=== PATIENT | female | born 1985 | race Caucasian/White ===

== ENCOUNTER 2022-05-13 17:31 | Emergency (ER) | payer MEDICAID, SELFPAY ==
--- NOTE | ~2022-05-13 | XR_ITS ---
EXAMINATION: X-RAY PELVIS AND RIGHT HIP X-RAY RIGHT KNEE X-RAY RIGHT FOOT CLINICAL INFORMATION: Pain. COMPARISON: None. TECHNIQUE: 1 view of the pelvis and 2 views of the right hip. 4 views of the right knee. 3 views of the right foot. FINDINGS: Pelvis and right hip: No acute fracture or malalignment. SI joints are symmetric. Pubic symphysis is maintained. Small pelvic phleboliths. Right knee: No acute fracture or subluxation. Small joint effusion. Right foot: No acute fracture or malalignment. Diffuse nonspecific soft tissue swelling. XR/XR hip RT w PEL1V IMPRESSION: 1. No acute fracture or malalignment. 2. Small right knee joint effusion. 3. Diffuse nonspecific soft tissue swelling in the right foot.
--- NOTE | ~2022-05-13 | XR_ITS ---
EXAMINATION: X-RAY PELVIS AND RIGHT HIP X-RAY RIGHT KNEE X-RAY RIGHT FOOT CLINICAL INFORMATION: Pain. COMPARISON: None. TECHNIQUE: 1 view of the pelvis and 2 views of the right hip. 4 views of the right knee. 3 views of the right foot. FINDINGS: Pelvis and right hip: No acute fracture or malalignment. SI joints are symmetric. Pubic symphysis is maintained. Small pelvic phleboliths. Right knee: No acute fracture or subluxation. Small joint effusion. Right foot: No acute fracture or malalignment. Diffuse nonspecific soft tissue swelling. XR/XR foot RT min 3V IMPRESSION: 1. No acute fracture or malalignment. 2. Small right knee joint effusion. 3. Diffuse nonspecific soft tissue swelling in the right foot.
--- NOTE | ~2022-05-13 | XR_ITS ---
EXAMINATION: X-RAY PELVIS AND RIGHT HIP X-RAY RIGHT KNEE X-RAY RIGHT FOOT CLINICAL INFORMATION: Pain. COMPARISON: None. TECHNIQUE: 1 view of the pelvis and 2 views of the right hip. 4 views of the right knee. 3 views of the right foot. FINDINGS: Pelvis and right hip: No acute fracture or malalignment. SI joints are symmetric. Pubic symphysis is maintained. Small pelvic phleboliths. Right knee: No acute fracture or subluxation. Small joint effusion. Right foot: No acute fracture or malalignment. Diffuse nonspecific soft tissue swelling. XR/XR knee RT 4V IMPRESSION: 1. No acute fracture or malalignment. 2. Small right knee joint effusion. 3. Diffuse nonspecific soft tissue swelling in the right foot.
--- NOTE | ~2022-05-13 | US_ITS ---
EXAMINATION: US VENOUS ULTRASOUND WITH DOPPLER LOWER EXTREMITY, RIGHT CLINICAL INFORMATION: Pain COMPARISON: None TECHNIQUE: Ultrasound of the deep veins is performed from the hip to the calf with compression sonography and color and pulse Doppler assessment. Spectral analysis with color-flow imaging is performed. FINDINGS: There is normal venous compression and respiratory variation and augmented flow. The visualized common femoral vein, superficial femoral vein, profunda femoral vein, popliteal vein, and the trifurcation region shows no evidence of deep venous thrombosis. There is no significant popliteal fossa cyst. If the patient's symptoms persist, followup ultrasound in 5 days 7 days might be of value to exclude proximal propagation from a non-visualized calf vein. US/US venous duplex LE RT IMPRESSION: No DVT demonstrated in the right lower extremity.
[2022-05-13 17:39] VITALS: BP 149/104; PULSE 104; RESP 18; TEMP 37.2; O2SAT 94; BMI 27.3
[2022-05-13] MEDS: Ketorolac Tromethamine 30 MG/ML VIAL IM (20:22)
[2022-05-13] MEDS: Diphth,Pertus(ACell),Tet Adult 0.5 ML SYRINGE IM (20:22)
[2022-05-13] MEDS: Cyclobenzaprine HCl 10 MG TABLET PO (20:22)
--- NOTE | 2022-05-13 20:51 | ED.LOWEXIN ---
HPI - Extremity Injury (Lower) General Chief Complaint: Extremity Injury, Lower Stated Complaint: foot pain Time Seen by Provider: 05/13/22 19:15 Source: patient and family (Spouse) Mode of arrival: ambulatory Limitations: language barrier (Korean-speaking) History of Present Illness HPI Narrative: 36yoF presenting to the ER with complaints of right hip/knee pain that has been going on for 2 weeks worse today. Reports she stands for 8 hours at work and reports she is concerned it is related to this. She also reports she stepped on a piece of glass on 05/09/2022 although remove the glass. Reports she is still having some residual pain from this. Reports she is a prediabetic. Denies any fevers, chest pain, shortness of breath, dyspnea on exertion, or palpitations, lower extremity more calf tenderness or any other symptoms complaints or concerns at this time. MD complaint: hip injury, knee injury and foot injury Onset (ago): week(s) (2) Severity: moderate Relieving factors: nothing Exacerbating factors: weight bearing, movement and palpation Other symptoms: none Related Data Previous Rx's Medication Instructions Recorded ciprofloxacin HCl 500 mg tablet 500 mg PO BID Foot puncture wound 05/13/22 (Cipro) 14 days #28 tabs cyclobenzaprine 10 mg tablet 10 mg PO Q8H #14 tabs 05/13/22 naproxen 500 mg tablet 500 mg PO BID PRN pain #14 tabs 05/13/22 Allergies Allergy/AdvReac Type Severity Reaction Status Date / Time No Known Allergies Allergy Verified 05/13/22 17:34 [No Known Allergies*] Review of Systems Review of Systems: Constitutional : No Weight loss, No Fever, No Chills, No Night Sweats, No Fatigue, No Malaise ENT/Mouth : No Hearing loss, No Ear Pain, No Nasal Congestion, No Sinus Pain, No Hoarseness, No sore throat, No Rhinorrhea, No Swallowing Difficulty Eyes: No Eye Pain, No Swelling, No Redness, No Foreign Body, No Discharge, No Vision Changes Cardiovascular : No Chest Pain, No SOB, No Dyspnea on Exertion, No Orthopnea, No Edema, No Palpitations Respiratory : No Cough, No Sputum, No Wheezing, No Smoke Exposure, No Dyspnea Gastrointestinal : No Nausea, No Vomiting, No Diarrhea, No Constipation, No abdominal Pain, No Hematochezia, No Melena Genitourinary : no irregular bleeding, No Dysuria, No Urinary Frequency, No Hematuria, No Urinary Incontinence, No Urgency, No Flank Pain, No Urinary Flow Changes, No Hesitancy Musculoskeletal : + right hip/knee/foot joint pain, No Myalgias, No Joint Swelling Skin : + puncture wound to right foot, No Skin Lesions, No rash Neuro : No Weakness, No Numbness, No Paresthesias, No Loss of Consciousness, No Dizziness, No Headache Psych : No Anxiety/Panic, No Depression, No SI/HI/AH/VH, No Social Issues, Heme/Lymph: No Bruising, No Bleeding,No Lymphadenopathy Endocrine : No Polyuria, No Polydipsia, No Temperature Intolerance Yes all other systems are reviewed and are negative [facility] Past Medical History Attestation statement: The following information was validated with the patient. Source: old records reviewed, obtained from family and nursing notes reviewed Social History Social History Advance Directives: No Advance Directives Information Provided: No Physical Exam Vital Signs: Vital Signs: Last Vital Signs Temp 99 F 05/13/22 17:39 Pulse 104 H 05/13/22 17:39 Resp 18 05/13/22 17:39 BP 149/104 H 05/13/22 17:39 Pulse Ox 94 05/13/22 17:39 O2 Del Method 05/13/22 17:39 BMI result Body Mass Index 27.3 Vital signs reviewed. Blood pressure 149/104 Pulse 104. Respiration normal. Oxygen normal. Temperature normal. Appearance: Alert. Oriented X3. No acute distress. Head: Normal external exam. Normocephalic. Atraumatic. Eyes: PERRLA. EOMI. Conjunctiva and sclera normal. Eyelids normal. ENT: EAC normal. TM's Normal. Pharynx normal. Uvula midline. Moist mucous membranes. No lesions/ulcerations or masses noted on the tongue. Normal voice. No trismus noted. No drooling noted. No muffled voice noted. Neck: Normal inspection. Neck supple. FROM. No adenopathy. Thyroid Normal. No meningeal signs. CVS: Normal heart rate and rhythm. Heart sound normal. Pulses normal throughout. No murmurs/rales/gallops. Respiratory: No respiratory distress. Painless inspiration. Breath sounds normal. No wheezes/rales/rhonchi noted. Chest nontender. No accessory muscle usage noted or decreased air movement noted. Abdomen: Soft and nontender. Back: Full range of motion noted. Nontender. Skin: Skin warm and dry. Normal skin color. Normal skin turgor. No rashes/lesions/lacerations noted. Extremities: Patient with tenderness palpation to the right hip at the lateral aspect and right knee diffusely and tenderness palpation to the sole aspect of the foot with a superficial puncture wound. No foreign bodies noted to the right foot. She has full range of motion of the right hip/knee/ankle and foot joint. Not consistent with septic joint. No obvious ligamentous or tendon injury noted. There is no lower extremity edema or calf tenderness noted. Otherwise all other extremities exhibit normal range of motion nontender. Neuro: Oriented X 3. No motor deficit. No sensory deficit. Reflexes normal. Normal steady gait. No focal neuro deficits noted. CN's II-XII intact bilaterally? Vascular: + radial pulses. Normal cap refill. No cyanosis noted to upper extremity nails Course Course Course Narrative: 36yoF presenting to the ER with complaints of right hip/knee pain that has been going on for 2 weeks worse today. Reports she stands for 8 hours at work and reports she is concerned it is related to this. She also reports she stepped on a piece of glass on 05/09/2022 although remove the glass. Reports she is still having some residual pain from this. Reports she is a prediabetic. Denies any fevers, chest pain, shortness of breath, dyspnea on exertion, or palpitations, lower extremity more calf tenderness or any other symptoms complaints or concerns at this time. X-ray of right knee reveals small joint effusion. X-ray of right foot revealed some soft tissue swelling. Otherwise no other acute processes noted. DVT study negative. Will place an Deshawn wrap and treat symptomatic and instructed follow-up with PCP and orthopedic his symptoms persist and to return if any new or worsening symptoms. Patient understands agrees with this plan. Medications Administered Discontinued Medications Generic Name Dose Route Start Last Admin Trade Name Freq PRN Reason Stop Dose Admin Cyclobenzaprine HCl 10 mg 05/13/22 19:32 05/13/22 20:22 Cyclobenzaprine Hcl 10 Mg Tablet PO 05/13/22 19:33 10 mg ONCE ONE Administration Diphtheria/Tetanus/Acell Pertussis 0.5 ml 05/13/22 19:32 05/13/22 20:22 Diphth,Pertus(Acell),Tet Adult 0.5 Ml Syringe IM 05/13/22 19:33 0.5 ml .ONCE ONE Administration Ketorolac Tromethamine 30 mg 05/13/22 19:32 05/13/22 20:22 Ketorolac Tromethamine 30 Mg/Ml Vial IM 05/13/22 19:33 30 mg ONCE ONE Administration Medical Decision Making Independent Interpretation I performed an independent interpretation of an: Plain X-Ray (I reviewed the x-ray results myself and printed out and given to the patient) and Ultrasound (I reviewed the ultrasound myself and negative for any DVT and discussed this with the patient family) Radiology Impression Discussion of test interpretation with radiology: I have reviewed the radiologist's reading. Radiologist Impression: FINDINGS: There is normal venous compression and respiratory variation and augmented flow. The visualized common femoral vein, superficial femoral vein, profunda femoral vein, popliteal vein, and the trifurcation region shows no evidence of deep venous thrombosis. ? There is no significant popliteal fossa cyst. If the patient's symptoms persist, followup ultrasound in 5 days 7 days might be of value to exclude proximal propagation from a non-visualized calf vein. US/US venous duplex LE RT IMPRESSION: No DVT demonstrated in the right lower extremity. EXAMINATION: X-RAY PELVIS AND RIGHT HIP X-RAY RIGHT KNEE X-RAY RIGHT FOOT CLINICAL INFORMATION: Pain.? COMPARISON: None.? TECHNIQUE: 1 view of the pelvis and 2 views of the right hip. 4 views of the right knee. 3 views of the right foot.? FINDINGS: Pelvis and right hip: No acute fracture or malalignment. SI joints are symmetric. Pubic symphysis is maintained. Small pelvic phleboliths. Right knee: No acute fracture or subluxation. Small joint effusion. Right foot: No acute fracture or malalignment. Diffuse nonspecific soft tissue swelling.? XR/XR knee RT 4V IMPRESSION: 1.? No acute fracture or malalignment. 2.? Small right knee joint effusion. 3.? Diffuse nonspecific soft tissue swelling in the right foot. ? Independent Historian Clinical information obtained from an independent historian. History obtained from or confirmed by: Spouse Discharge Plan Discharge Clinical Impression: Puncture wound of foot, Effusion of knee joint right Patient Disposition: Home, Self-Care Instructions: Swollen Knee Joint (ED), Joint Aspiration (DC), Puncture Wound in the Foot (ED) Prescriptions: New ciprofloxacin HCl [Cipro] 500 mg tablet 500 mg PO BID 14 Days Qty: 28 0RF naproxen 500 mg tablet 500 mg PO BID PRN (Reason: pain) Qty: 14 0RF cyclobenzaprine 10 mg tablet 10 mg PO Q8H Qty: 14 0RF Referrals: [facility] [place] [facility] [Provider Group] (Call to make a follow-up appointment as needed for your right knee joint effusion) [place],[facility] [Primary Care Provider] - 2 days Stand Alone Forms: Work/School Release Print Language: Korean
== END 2022-05-13 21:14 | disposition home or self-care (01) ==
PROVIDERS: Emergency Provider Emergency Medicine
DX: S80.211A Abrasion, right knee, initial encounter (principal); M25.461 Effusion, right knee; M25.551 Pain in right hip; R60.0 Localized edema; X58.XXXA Exposure to other specified factors, initial encounter; Y93.9 Activity, unspecified; Y92.9 Unspecified place or not applicable; Y99.9 Unspecified external cause status; Z23 Encounter for immunization; Z79.899 Other long term (current) drug therapy
CPT/HCPCS: 73502; 73564; 73630; 90471; 90715; 93971; 96372; 99283; 99284; J1885

== ENCOUNTER 2022-05-16 11:46 | Emergency (ER) | payer MEDICAID, SELFPAY ==
--- NOTE | ~2022-05-16 | XR_ITS ---
EXAMINATION: XR CHEST CLINICAL INFORMATION: Shortness of breath COMPARISON: None TECHNIQUE: 2 views of the chest were obtained. FINDINGS: No significant abnormality central perirectal thickening with increased central perihilar markings. Is noted involving the heart, lungs, mediastinum, bony thorax or soft tissues. XR/XR chest 2V IMPRESSION: Findings consistent with nonspecific bronchitis. No focal infiltrate.
[2022-05-16 11:51] VITALS: BP 155/94; PULSE 128; RESP 18; TEMP 37.1; O2SAT 96; BMI 27.3
[2022-05-16 12:57] LABS: Influenza A PCR NEGATIVE (Negative); Influenza B PCR NEGATIVE (Negative); Resp Syncy Virus RNA Qual PCR NEGATIVE (Negative); SARS COV2 PCR INHOUSE NEGATIVE (Negative)
[2022-05-16] MEDS: predniSONE 20 MG TABLET 60 MG PO (15:07)
[2022-05-16 15:09] VITALS: O2SAT 94
[2022-05-16 15:18] VITALS: PULSE 105; RESP 19; O2SAT 99
--- NOTE | 2022-05-16 16:08 | ED.URI ---
HPI - URI/Sore Throat General Chief Complaint: Upper Respiratory Symptoms Stated Complaint: Diff Breathing Asthma Time Seen by Provider: 05/16/22 14:44 History of Present Illness HPI Narrative: Patient complains of cough productive of sputum, chest tightness, wheezing over the last several days, the chest tightness is similar to prior episodes of wheezing and asthma, there is no other chest pain except when she coughs There is no exertional chest pain no nausea or vomiting no diaphoresis no fainting of feeling faint no palpitations no syncope no dizziness She does have some runny nose and congestion no sore throat no difficulty swallowing no abdominal pain no nausea vomiting or diarrhea no dysuria no calf pain or swelling no leg swelling Related Data Previous Rx's Medication Instructions Recorded ciprofloxacin HCl 500 mg tablet 500 mg PO BID Foot puncture wound 05/13/22 (Cipro) 14 days #28 tabs cyclobenzaprine 10 mg tablet 10 mg PO Q8H #14 tabs 05/13/22 naproxen 500 mg tablet 500 mg PO BID PRN pain #14 tabs 05/13/22 albuterol sulfate 2.5 mg/3 mL 2.5 mg (3 mL) inhalation Q4H PRN 05/16/22 (0.083 %) solution for nebulization shortness of breath or wheezing #75 mL albuterol sulfate 90 mcg/actuation 2 puff inhalation Q4-6H PRN 05/16/22 aerosol inhaler shortness of breath or wheezing #8.5 grams benzonatate 100 mg capsule 100 mg PO TID PRN cough #14 caps 05/16/22 doxycycline hyclate 100 mg tablet 100 mg PO BID 7 days #14 tabs 05/16/22 prednisone 20 mg tablet 60 mg PO DAILY 5 days #15 tabs 05/16/22 Allergies Allergy/AdvReac Type Severity Reaction Status Date / Time No Known Allergies Allergy Verified 05/16/22 11:58 [No Known Allergies*] [facility] Past Medical History Source: nursing notes reviewed Social History Social History Advance Directives: No Advance Directives Information Provided: Yes Physical Exam Vital Signs: Vital Signs: Last Vital Signs Temp 98.7 F 05/16/22 11:51 Pulse 105 H 05/16/22 15:18 Resp 19 05/16/22 15:18 BP 155/94 H 05/16/22 11:51 Pulse Ox 94 05/16/22 15:09 O2 Del Method 05/16/22 15:09 BMI result Body Mass Index 27.3 General appearance is no acute distress Eyes anicteric no pallor Pharynx is clear without redness swelling or exudate The mucous membranes are moist the voice is normal Neck is supple Chest is with scattered wheezes now, but good air entry no respiratory distress Abdomen soft nontender Extremities range of motion x4 without edema no calf swelling or tenderness Course Course Course Narrative: Patient with history of asthma who comes in with wheezing chest tightness and productive cough X-ray was negative for obvious consolidation COVID and flu tests were negative Patient was given a treatment with good improvement in her breath sounds as well as feeling improved breathing after The pain in her chest was totally reproducible and the description was only chest pain with coughing and movement as well as some chest tightness which is very typical when she has had asthma before there were no exertional symptoms no diaphoresis no vomiting She is given a prescription for albuterol as she has no medicine for her machine at home, up pump as well, prednisone and Zithromax antibiotic Medications Administered Discontinued Medications Generic Name Dose Route Start Last Admin Trade Name Freq PRN Reason Stop Dose Admin Albuterol Sulfate 5 mg/ 0 mg 05/16/22 15:02 05/16/22 15:15 Ipratropium [place] 0.5 mg INHALE 05/16/22 15:03 1 each ONCE ONE Administration Prednisone 60 mg 05/16/22 15:03 05/16/22 15:07 Prednisone 20 Mg Tablet PO 05/16/22 15:04 60 mg ONCE ONE Administration Medical Decision Making Lab Data Labs: Lab Results 05/16/22 Range/Units 12:08 Influenza Type A (PCR) NEGATIVE (Negative) Influenza Type B (PCR) NEGATIVE (Negative) RSV RNA Qual (PCR) NEGATIVE (Negative) SARS-CoV-2 RNA (RT-PCR) NEGATIVE (Negative) Discharge Plan Discharge Clinical Impression: Bronchitis, Asthma Patient Disposition: Home, Self-Care Additional Instructions: Chest x-ray was normal, COVID and flu testing were negative We prescribed prednisone and albuterol for the wheezing, and Zithromax antibiotic for bronchitis Follow with your doctor Return any time for difficulty breathing any worse condition or any concerns Prescriptions: New doxycycline hyclate 100 mg tablet 100 mg PO BID 7 Days Qty: 14 0RF prednisone 20 mg tablet 60 mg PO DAILY 5 Days Qty: 15 0RF albuterol sulfate 90 mcg/actuation HFA aerosol inhaler 2 puff inhalation Q4-6H PRN (Reason: shortness of breath or wheezing) Qty: 8.5 0RF albuterol sulfate 2.5 mg /3 mL (0.083 %) solution for nebulization 2.5 mg inhalation Q4H PRN (Reason: shortness of breath or wheezing) Qty: 75 0RF benzonatate 100 mg capsule 100 mg PO TID PRN (Reason: cough) Qty: 14 0RF No Action ciprofloxacin HCl [Cipro] 500 mg tablet 500 mg PO BID 14 Days Qty: 28 0RF naproxen 500 mg tablet 500 mg PO BID PRN (Reason: pain) Qty: 14 0RF cyclobenzaprine 10 mg tablet 10 mg PO Q8H Qty: 14 0RF Stand Alone Forms: Work/School Release Interventions: ED Discharge Assessment Last Done: 05/16/22 16:28 Discharge Date/Time: 05/16/22 16:29
== END 2022-05-16 16:29 | disposition home or self-care (01) ==
PROVIDERS: Emergency Provider Emergency Medicine
DX: J45.909 Unspecified asthma, uncomplicated (principal); R06.02 Shortness of breath; R07.89 Other chest pain; R05.9 Cough, unspecified; Z20.822 Contact with and (suspected) exposure to COVID-19; Z20.828 Contact with and (suspected) exposure to other viral communicable diseases; Z79.899 Other long term (current) drug therapy
CPT/HCPCS: 0241U; 71046; 94640; 99284

== ENCOUNTER 2022-07-17 10:57 | Emergency (ER) | payer MEDICAID, SELFPAY ==
[2022-07-17 11:07] VITALS: BP 128/88; PULSE 95; RESP 18; TEMP 37.1; O2SAT 98; BMI 27.3
--- NOTE | 2022-07-17 11:09 | ED.GENADULT ---
HPI - General Adult General Chief complaint: Upper Respiratory Symptoms Stated complaint: sore throat, R ear pain, cold symp Time Seen by Provider: 07/17/22 12:09 Related Data Previous Rx's Medication Instructions Recorded ciprofloxacin HCl 500 mg tablet 500 mg PO BID Foot puncture wound 05/13/22 (Cipro) 14 days #28 tabs cyclobenzaprine 10 mg tablet 10 mg PO Q8H #14 tabs 05/13/22 naproxen 500 mg tablet 500 mg PO BID PRN pain #14 tabs 05/13/22 albuterol sulfate 2.5 mg/3 mL 2.5 mg (3 mL) inhalation Q4H PRN 05/16/22 (0.083 %) solution for nebulization shortness of breath or wheezing #75 mL albuterol sulfate 90 mcg/actuation 2 puff inhalation Q4-6H PRN 05/16/22 aerosol inhaler shortness of breath or wheezing #8.5 grams benzonatate 100 mg capsule 100 mg PO TID PRN cough #14 caps 05/16/22 doxycycline hyclate 100 mg tablet 100 mg PO BID 7 days #14 tabs 05/16/22 prednisone 20 mg tablet 60 mg PO DAILY 5 days #15 tabs 05/16/22 ibuprofen 600 mg tablet 600 mg PO Q6H PRN fever or pain 07/17/22 #20 tabs Allergies Allergy/AdvReac Type Severity Reaction Status Date / Time No Known Allergies Allergy Verified 07/17/22 11:07 [No Known Allergies*] PMFSH Social History Social History Advance Directives: No Physical Exam ED Vital Signs: Vital Signs - 24 hr 07/17/22 11:07 Temperature 98.7 F Pulse Rate 95 Respiratory Rate 18 Blood Pressure 128/88 Pulse Oximetry 98 Oxygen Delivery Method Room Air BMI result Body Mass Index 27.3 Course Course Course Narrative: 36 year old female presnts for evaluation of sore throat and cough. She is well appearing. Plan for strep throat swab and viral swab Medical Decision Making Lab Data Labs: Lab Results 07/17/22 07/17/22 Range/Units 11:16 11:16 Influenza Type A (PCR) NEGATIVE (Negative) Influenza Type B (PCR) NEGATIVE (Negative) RSV RNA Qual (PCR) NEGATIVE (Negative) SARS-CoV-2 RNA (RT-PCR) NEGATIVE (Negative) S. pyogenes GrpA MOHAN Negative (Negative) Discharge Plan Discharge Clinical Impression: Acute viral syndrome Patient Disposition: Home, Self-Care Additional Instructions: Testing for COVID fluid and strep were all negative Your exam was normal and there is no sign of any dangerous or worrisome condition now You likely have viral illness which should pass in a week to 10 days We gave a dose of steroid which usually relieves throat inflammation and makes it more comfortable to swallow Drink plenty of fluids Return any time any worse condition or any concerns Prescriptions: New ibuprofen 600 mg tablet 600 mg PO Q6H PRN (Reason: fever or pain) Qty: 20 0RF No Action doxycycline hyclate 100 mg tablet 100 mg PO BID 7 Days Qty: 14 0RF prednisone 20 mg tablet 60 mg PO DAILY 5 Days Qty: 15 0RF albuterol sulfate 90 mcg/actuation HFA aerosol inhaler 2 puff inhalation Q4-6H PRN (Reason: shortness of breath or wheezing) Qty: 8.5 0RF albuterol sulfate 2.5 mg /3 mL (0.083 %) solution for nebulization 2.5 mg inhalation Q4H PRN (Reason: shortness of breath or wheezing) Qty: 75 0RF benzonatate 100 mg capsule 100 mg PO TID PRN (Reason: cough) Qty: 14 0RF ciprofloxacin HCl [Cipro] 500 mg tablet 500 mg PO BID 14 Days Qty: 28 0RF naproxen 500 mg tablet 500 mg PO BID PRN (Reason: pain) Qty: 14 0RF cyclobenzaprine 10 mg tablet 10 mg PO Q8H Qty: 14 0RF Stand Alone Forms: Work/School Release
[2022-07-17 11:31] LABS: IDNOW Serial# 08D9AD1C; Strep A Nucleic Acid Negative (Negative)
[2022-07-17 12:06] LABS: Influenza A PCR NEGATIVE (Negative); Influenza B PCR NEGATIVE (Negative); Resp Syncy Virus RNA Qual PCR NEGATIVE (Negative); SARS COV2 PCR INHOUSE NEGATIVE (Negative)
--- NOTE | 2022-07-17 12:46 | ED.URI ---
HPI - URI/Sore Throat General Chief Complaint: Upper Respiratory Symptoms Stated Complaint: sore throat, R ear pain, cold symp Time Seen by Provider: 07/17/22 12:09 History of Present Illness HPI Narrative: Patient complains of sore throat runny nose and mild cough as well as body aches for the last 2 days The sore throat hurts when she eats but she is able to eat and drink with no difficulty She has no headache she has no stiff neck she has no chest pain no sputum, cough is mild infrequent and dry, she has no shortness of breath, no abdominal pain nausea vomiting or diarrhea no dysuria no skin rash Related Data Previous Rx's Medication Instructions Recorded ciprofloxacin HCl 500 mg tablet 500 mg PO BID Foot puncture wound 05/13/22 (Cipro) 14 days #28 tabs cyclobenzaprine 10 mg tablet 10 mg PO Q8H #14 tabs 05/13/22 naproxen 500 mg tablet 500 mg PO BID PRN pain #14 tabs 05/13/22 albuterol sulfate 2.5 mg/3 mL 2.5 mg (3 mL) inhalation Q4H PRN 05/16/22 (0.083 %) solution for nebulization shortness of breath or wheezing #75 mL albuterol sulfate 90 mcg/actuation 2 puff inhalation Q4-6H PRN 05/16/22 aerosol inhaler shortness of breath or wheezing #8.5 grams benzonatate 100 mg capsule 100 mg PO TID PRN cough #14 caps 05/16/22 doxycycline hyclate 100 mg tablet 100 mg PO BID 7 days #14 tabs 05/16/22 prednisone 20 mg tablet 60 mg PO DAILY 5 days #15 tabs 05/16/22 ibuprofen 600 mg tablet 600 mg PO Q6H PRN fever or pain 07/17/22 #20 tabs Allergies Allergy/AdvReac Type Severity Reaction Status Date / Time No Known Allergies Allergy Verified 07/17/22 11:07 [No Known Allergies*] [facility] Past Medical History Source: nursing notes reviewed Social History Social History Advance Directives: No Physical Exam Vital Signs: Vital Signs: Last Vital Signs Temp 98.7 F 07/17/22 11:07 Pulse 95 07/17/22 11:07 Resp 18 07/17/22 11:07 BP 128/88 07/17/22 11:07 Pulse Ox 98 07/17/22 11:07 O2 Del Method Room Air 07/17/22 11:07 BMI result Body Mass Index 27.3 General appearance comfortable no distress Eyes no redness or discharge The nose is congested, sinuses are nontender The pharynx is clear without redness swelling or exudate, membranes are moist Neck is supple Chest clear to auscultation bilateral Heart no murmur Abdomen soft nontender Extremities for range of motion x4 Skin no rash Course Course Course Narrative: Well-appearing patient tolerating p.o. no distress had negative COVID flu and strep tests and is treated with a dose of steroid and is discharged Medical Decision Making Lab Data Labs: Lab Results 07/17/22 07/17/22 Range/Units 11:16 11:16 Influenza Type A (PCR) NEGATIVE (Negative) Influenza Type B (PCR) NEGATIVE (Negative) RSV RNA Qual (PCR) NEGATIVE (Negative) SARS-CoV-2 RNA (RT-PCR) NEGATIVE (Negative) S. pyogenes GrpA MOHAN Negative (Negative) Discharge Plan Discharge Clinical Impression: Acute viral syndrome Patient Disposition: Home, Self-Care Additional Instructions: Testing for COVID fluid and strep were all negative Your exam was normal and there is no sign of any dangerous or worrisome condition now You likely have viral illness which should pass in a week to 10 days We gave a dose of steroid which usually relieves throat inflammation and makes it more comfortable to swallow Drink plenty of fluids Return any time any worse condition or any concerns Prescriptions: New ibuprofen 600 mg tablet 600 mg PO Q6H PRN (Reason: fever or pain) Qty: 20 0RF No Action doxycycline hyclate 100 mg tablet 100 mg PO BID 7 Days Qty: 14 0RF prednisone 20 mg tablet 60 mg PO DAILY 5 Days Qty: 15 0RF albuterol sulfate 90 mcg/actuation HFA aerosol inhaler 2 puff inhalation Q4-6H PRN (Reason: shortness of breath or wheezing) Qty: 8.5 0RF albuterol sulfate 2.5 mg /3 mL (0.083 %) solution for nebulization 2.5 mg inhalation Q4H PRN (Reason: shortness of breath or wheezing) Qty: 75 0RF benzonatate 100 mg capsule 100 mg PO TID PRN (Reason: cough) Qty: 14 0RF ciprofloxacin HCl [Cipro] 500 mg tablet 500 mg PO BID 14 Days Qty: 28 0RF naproxen 500 mg tablet 500 mg PO BID PRN (Reason: pain) Qty: 14 0RF cyclobenzaprine 10 mg tablet 10 mg PO Q8H Qty: 14 0RF Stand Alone Forms: Work/School Release
[2022-07-17] MEDS: Ibuprofen 600 MG TABLET PO (12:55)
[2022-07-17] MEDS: dexAMETHasone 2 MG TABLET 10 MG PO (12:55)
== END 2022-07-17 13:04 | disposition home or self-care (01) ==
PROVIDERS: Physician Assistant; Emergency Provider Emergency Medicine
DX: B34.9 Viral infection, unspecified (principal); J02.9 Acute pharyngitis, unspecified; Z20.822 Contact with and (suspected) exposure to COVID-19; Z20.828 Contact with and (suspected) exposure to other viral communicable diseases; Z79.899 Other long term (current) drug therapy
CPT/HCPCS: 0241U; 87651; 99283; J8540

== ENCOUNTER 2023-12-24 17:12 | Emergency (ER) | payer MEDICAID, SELFPAY ==
--- NOTE | ~2023-12-24 | XR_ITS ---
EXAMINATION: XR CHEST CLINICAL INFORMATION: Chest pain COMPARISON: None available. TECHNIQUE: 2 views of the chest were obtained. FINDINGS: No significant abnormality is noted involving the heart, lungs, mediastinum, bony thorax or soft tissues. XR/XR chest 2V IMPRESSION: Unremarkable examination. Electronically signed by: Arturo Alvarez MD 12/24/2023 06:11 PM EDT RP
[2023-12-24 17:14] VITALS: BP 145/99; PULSE 96; RESP 16; TEMP 36.1; O2SAT 99; BMI 29.7
--- NOTE | 2023-12-24 17:14 | ED_ITS ---
HPI - Chest Pain General Chief Complaint: Chest Pain Stated Complaint: headaches/eye red/chest hurts Related Data Previous Rx's ?Medication ?Instructions ?Recorded ciprofloxacin HCl 500 mg tablet 500 mg PO BID Foot puncture wound 05/13/22 (Cipro) 14 days #28 tabs cyclobenzaprine 10 mg tablet 10 mg PO Q8H #14 tabs 05/13/22 naproxen 500 mg tablet 500 mg PO BID PRN pain #14 tabs 05/13/22 albuterol sulfate 2.5 mg/3 mL 2.5 mg (3 mL) inhalation Q4H PRN 05/16/22 (0.083 %) solution for nebulization shortness of breath or wheezing #75 mL albuterol sulfate 90 mcg/actuation 2 puff inhalation Q4-6H PRN 05/16/22 aerosol inhaler shortness of breath or wheezing #8.5 grams benzonatate 100 mg capsule 100 mg PO TID PRN cough #14 caps 05/16/22 doxycycline hyclate 100 mg tablet 100 mg PO BID 7 days #14 tabs 05/16/22 prednisone 20 mg tablet 60 mg (3 x 20 mg) PO DAILY 5 days 05/16/22 #15 tabs ibuprofen 600 mg tablet 600 mg PO Q6H PRN fever or pain 07/17/22 #20 tabs Allergies Allergy/AdvReac Type Severity Reaction Status Date / Time No Known Allergies Allergy Verified 12/24/23 17:18 [No Known Allergies*] [facility] Social History Social History Advance Directives: No Advance Directives Information Provided: No Physical Exam 2 Vital Signs: Vital Signs: Last Vital Signs Temp 98.5 F 12/24/23 21:30 Pulse 76 12/24/23 21:30 Resp 13 12/24/23 21:30 BP 141/87 H 12/24/23 21:30 Pulse Ox 97 12/24/23 21:30 O2 Del Method Room Air 12/24/23 21:30 BMI result Body Mass Index 29.7 Course Course Course Narrative: This is an RME: Additional HPI, ROS, PE not included below will be deferred to primary provider. RME assessment and note performed by: Avril Humphreys PA-C This is a [id number]-female, with a hx of diabetes, who presents to the ER with complaints of chest pain x several weeks, worsening today. Describes the chest pain as sharp. Reporting headaches for months worsening last night. Also reporting cough, chills. She is not on control, no recent travel, surgeries, hospitalizations. Plan: Labs, EKG, chest x-ray Reevaluation(s) Reevaluation #1: Patient left without completing treatment. Medical Decision Making Lab Data 12/24/23 17:41 12/24/23 17:41 Labs: Lab Results 12/24/23 Range/Units 17:41 WBC 14.0 H (4.8-10.8) X10*3/uL RBC 4.56 (4.20-5.50) X10*6/uL Hgb 13.8 (12.0-16.0) g/dl Hct 38.4 (37.0-47.0) % MCV 84.2 (80.0-98.0) fL MCH 30.3 (27.0-33.0) pg MCHC 35.9 H (31.0-35.0) g/dl RDW 13.2 (11.0-16.0) % Plt Count 527 H (160-400) X10*3/uL MPV 8.8 L (9.4-12.3) fL Immature Gran % (Auto) 0.4 (0.0-0.4) % Neut % (Auto) 61.4 (45-73) % Lymph % (Auto) 32.0 (20-40) % [place]ferro % (Auto) 4.0 (2-11) % Eos % (Auto) 1.4 (0-4) % Baso % (Auto) 0.8 (0-2) % Lymph # (Auto) 4.5 (1.2-4.9) X10*3/uL [place] # (Auto) 0.6 (0.1-1.2) X10*3/uL Eos # (Auto) 0.2 (0.0-0.4) X10*3/uL Baso # (Auto) 0.1 (0.0-0.2) X10*3/uL Abs Immat Gran (auto) 0.05 H (0.00-0.03) X10*3/uL Absolute Neuts (auto) 8.6 H (2.0-8.3) x10*3/uL Absolute Nucleated RBC 0.000 (0.0-0.012) X10*3/uL Nucleated RBC % (auto) 0.0 (0.0-0.2) /100WBC PT 10.7 L (10.9-12.4) SEC INR 0.9 (0.9-1.1) Sodium 139 (135-145) mmol/L Potassium 3.6 (3.3-5.1) mmol/L Chloride 108 (96-108) mmol/L Carbon Dioxide 19 L (22-29) mmol/L Anion Gap 16 (12-20) BUN 9 (9-16) mg/dL Creatinine 0.73 (0.5-1.4) mg/dL Estim Creat Clear Calc 88.7 Estimated GFR > 60 Random Glucose 151 H (60-115) mg/dL Calcium 8.9 (8.4-10.2) mg/dL Total Bilirubin 0.1 (0.0-1.0) mg/dL Direct Bilirubin < 0.2 (0.0-0.5) mg/dL AST 10 (5-31) U/L ALT 9 (0-31) U/L Alkaline Phosphatase 56 (39-117) U/L Troponin I High Sens < 2.7 (<3.5-17.0) ng/L Total Protein 7.3 (6.5-8.0) g/dL Albumin 4.1 (3.5-5.0) g/dL Beta HCG, Quant < 2 mIU/mL Influenza Type A (PCR) NEGATIVE (Negative) Influenza Type B (PCR) NEGATIVE (Negative) RSV RNA Qual (PCR) NEGATIVE (Negative) SARS-CoV-2 RNA (RT-PCR) NEGATIVE (Negative) Discharge Plan Discharge Clinical Impression: Chest pain Patient Disposition: Left W/O Completing Treatment Prescriptions: No Action doxycycline hyclate 100 mg tablet 100 mg PO BID 7 Days Qty: 14 0RF prednisone 20 mg tablet 60 mg PO DAILY 5 Days Qty: 15 0RF albuterol sulfate 90 mcg/actuation HFA aerosol inhaler 2 puff inhalation Q4-6H PRN (Reason: shortness of breath or wheezing) Qty: 8.5 0RF albuterol sulfate 2.5 mg /3 mL (0.083 %) solution for nebulization 2.5 mg inhalation Q4H PRN (Reason: shortness of breath or wheezing) Qty: 75 0RF benzonatate 100 mg capsule 100 mg PO TID PRN (Reason: cough) Qty: 14 0RF ciprofloxacin HCl [Cipro] 500 mg tablet 500 mg PO BID 14 Days Qty: 28 0RF naproxen 500 mg tablet 500 mg PO BID PRN (Reason: pain) Qty: 14 0RF cyclobenzaprine 10 mg tablet 10 mg PO Q8H Qty: 14 0RF ibuprofen 600 mg tablet 600 mg PO Q6H PRN (Reason: fever or pain) Qty: 20 0RF Discharge Date/Time: 12/24/23 22:56
--- NOTE | 2023-12-24 17:16 | ECG_ITS ---
Test Reason : CHEST PAIN Blood Pressure : / mmHG Vent. Rate : 090 BPM Atrial Rate : 090 BPM P-R Int : 152 ms QRS Dur : 070 ms QT Int : 356 ms P-R-T Axes : 040 007 031 degrees QTc Int : 435 ms Normal sinus rhythm Normal ECG No previous ECGs available Referred By: Avril Humphreys Electronically Signed By:TANYA DUDLEY
[2023-12-24 17:47] LABS: MANUAL DIFF FLAG NO
[2023-12-24 17:49] LABS: Basophils Absolute Auto 0.1 X10*3/uL (0.0-0.2); Basophils Percent Auto 0.8 % (0-2); Eosinophils Absolute Auto 0.2 X10*3/uL (0.0-0.4); Eosinophils Percent Auto 1.4 % (0-4); Hematocrit 38.4 % (37.0-47.0); Hemoglobin 13.8 g/dl (12.0-16.0); Imm Gran Abs Auto 0.05 X10*3/uL (0.00-0.03); Imm Gran Pct Auto 0.4 % (0.0-0.4); Lymphocytes Absolute Auto 4.5 X10*3/uL (1.2-4.9); Mean Corpuscular HGB Conc 35.9 g/dl (31.0-35.0); Mean Corpuscular Hemoglobin 30.3 pg (27.0-33.0); Mean Corpuscular Volume 84.2 fL (80.0-98.0); Mean Platelet Volume 8.8 fL (9.4-12.3); Monocytes Absolute Auto 0.6 X10*3/uL (0.1-1.2); Neutrophils Absolute Auto 8.6 x10*3/uL (2.0-8.3); Neutrophils Percent Auto 61.4 % (45-73); Platelet Count 527 X10*3/uL (160-400); Red Blood Count 4.56 X10*6/uL (4.20-5.50); Red Cell Distribution Width 13.2 % (11.0-16.0)
[2023-12-24 17:56] LABS: INTERNATIONAL NORM RATIO 0.9 (0.9-1.1); Prothrombin Time 10.7 SEC (10.9-12.4)
[2023-12-24 18:09] LABS: Troponin-I High Sensitivity < 2.7 ng/L (<3.5-17.0)
[2023-12-24 18:12] LABS: HCG Quantitative < 2 mIU/mL
[2023-12-24 18:25] LABS: Influenza A PCR NEGATIVE (Negative); Influenza B PCR NEGATIVE (Negative); Resp Syncy Virus RNA Qual PCR NEGATIVE (Negative); SARS COV2 PCR INHOUSE NEGATIVE (Negative)
[2023-12-24 19:04] LABS: Alanine Aminotransferase 9 U/L (0-31); Albumin Level 4.1 g/dL (3.5-5.0); Alkaline Phosphatase 56 U/L (39-117); Anion Gap 16 (12-20); Aspartate Amino Transferase 10 U/L (5-31); Bilirubin Direct < 0.2 mg/dL (0.0-0.5); Bilirubin Total 0.1 mg/dL (0.0-1.0); Blood Urea Nitrogen 9 mg/dL (9-16); Calcium 8.9 mg/dL (8.4-10.2); Carbon Dioxide 19 mmol/L (22-29); Chloride 108 mmol/L (96-108); Creatinine Clr Calc Pharmacy 88.7; Estimated Glomerular Filt Rate > 60; Glucose Random 151 mg/dL (60-115); Potassium 3.6 mmol/L (3.3-5.1); Sodium 139 mmol/L (135-145); Total Protein 7.3 g/dL (6.5-8.0)
[2023-12-24 21:30] VITALS: BP 141/87; PULSE 76; RESP 13; TEMP 36.9; O2SAT 97
--- NOTE | 2023-12-24 22:54 | PC.NURSE ---
Pt in room requesting to leave d/t wait time. Pt LWCT at this time.
== END 2023-12-24 22:56 | disposition left against medical advice (07) ==
PROVIDERS: Physician Assistant Medical; Emergency Provider Emergency Medicine
DX: R07.9 Chest pain, unspecified (principal); R05.9 Cough, unspecified; R51.9 Headache, unspecified; Z53.21 Procedure and treatment not carried out due to patient leaving prior to being seen by health care provider
CPT/HCPCS: 0241U; 36415; 71046; 80048; 80076; 84484; 84702; 85025; 85610; 93005; 99281; 99283

== ENCOUNTER 2024-03-23 10:24 | Outpatient (REF) | payer MEDICAID, SELFPAY ==
[2024-03-23 11:42] LABS: MANUAL DIFF FLAG NO
[2024-03-23 11:51] LABS: Basophils Absolute Auto 0.1 X10*3/uL (0.0-0.2); Eosinophils Absolute Auto 0.1 X10*3/uL (0.0-0.4); Eosinophils Percent Auto 0.9 % (0-4); Hematocrit 43.6 % (37.0-47.0); Hemoglobin 14.1 g/dl (12.0-16.0); Imm Gran Abs Auto 0.03 X10*3/uL (0.00-0.03); Imm Gran Pct Auto 0.4 % (0.0-0.4); Lymphocytes Absolute Auto 2.3 X10*3/uL (1.2-4.9); Lymphocytes Percent Auto 28.2 % (20-40); Mean Corpuscular HGB Conc 32.3 g/dl (31.0-35.0); Mean Corpuscular Hemoglobin 27.8 pg (27.0-33.0); Mean Corpuscular Volume 85.8 fL (80.0-98.0); Mean Platelet Volume 8.8 fL (9.4-12.3); Monocytes Absolute Auto 0.4 X10*3/uL (0.1-1.2); Monocytes Percent Auto 5.1 % (2-11); Neutrophils Absolute Auto 5.3 x10*3/uL (2.0-8.3); Neutrophils Percent Auto 64.4 % (45-73); Platelet Count 488 X10*3/uL (160-400); Red Blood Count 5.08 X10*6/uL (4.20-5.50); Red Cell Distribution Width 13.5 % (11.0-16.0); White Blood Count 8.2 X10*3/uL (4.8-10.8)
[2024-03-23 12:31] LABS: Alanine Aminotransferase 14 U/L (0-31); Albumin Level 4.3 g/dL (3.5-5.0); Alkaline Phosphatase 59 U/L (39-117); Anion Gap 10 (12-20); Aspartate Amino Transferase 14 U/L (5-31); Bilirubin Total 0.2 mg/dL (0.0-1.0); Blood Urea Nitrogen 8 mg/dL (9-16); Calcium 8.9 mg/dL (8.4-10.2); Carbon Dioxide 26 mmol/L (22-29); Chloride 105 mmol/L (96-108); Cholesterol 200 mg/dL (<200); Estimated Glomerular Filt Rate > 60; Glucose Random 126 mg/dL (60-115); HDL Cholesterol 41 mg/dL (>40); LDL Cholesterol Calculated 114 mg/dL (<100); Potassium 4.2 mmol/L (3.3-5.1); Sodium 137 mmol/L (135-145); TSH reflex Free T4 1.02 uIU/mL (0.32-4.0); Total Protein 7.7 g/dL (6.5-8.0); Triglycerides 227 mg/dL (<150)
[2024-03-23 14:45] LABS: HIV AB/AG Nonreactive (Nonreactive); HIV Num 1 0.05 S/CO (0.00-0.99); ~HepC Num1 0.11 S/CO (0.00-0.79); ~Hepatitis C Antibody Nonreactive (Nonreactive)
[2024-03-24 14:16] LABS: Bacterial Vaginosis PCR NEGATIVE (Negative); Candida Group PCR DETECTED (Not Detect); Candida glab krusei PCR NOT DETECTED (Not Detect); Trichomonas vaginalis PCR NOT DETECTED (Not Detect)
[2024-03-26 13:02] LABS: RPR Rapid Plasma Reagin NON-REACTIVE (NON-REACTIVE)
== END 2024-03-23 10:25 | disposition home or self-care (01) ==
LOC: HO.HHCL 10:24
PROVIDERS: Visit Provider Nurse Practitioner Family
DX: Z00.00 Encounter for general adult medical examination without abnormal findings (principal); R53.83 Other fatigue; N94.9 Unspecified condition associated with female genital organs and menstrual cycle; R73.03 Prediabetes
CPT/HCPCS: 0352U; 36415; 80053; 80061; 84443; 85025; 86592; 86803; 87389